=== PATIENT | female | born 1980 | race Caucasian/White ===

== ENCOUNTER 2021-11-29 12:17 | Outpatient (CLI) | payer OTHER, SELFPAY ==
--- NOTE | ~2021-11-29 | MR_ITS ---
EXAMINATION: MR lumbar spine wo con DATE: 11/29/2021 12:52 INDICATION: Low back pain. TECHNIQUE: Magnetic resonance imaging (MRI) of the lumbar spine was performed without intravenous con trast. Sequences included sagittal T2-weighted FSE, sagittal T2-weighted FS FSE, sagittal T1-weighted FSE, and axial T2-weighted FSE. COMPARISON: None FINDINGS: Bone alignment is normal. Vertebral body heights are normal. There is severely decreased di sc height at L5-S1 with endplate remodeling. The distal spinal cord signal intensity is normal. The c onus medullaris is at L1-L2. The following disc levels are specifically discussed: L1-L2: The disc does not extend beyond the endplate margin. There is mild bilateral facet joint osteo arthritis. There is no neural foraminal stenosis. There is no central canal stenosis. L2-L3: The disc does not extend beyond the endplate margin. There is mild bilateral facet joint osteo arthritis. There is no neural foraminal stenosis. There is no central canal stenosis. L3-L4: The disc does not extend beyond the endplate margin. There is moderate bilateral facet joint o steoarthritis. There is no neural foraminal stenosis. There is no central canal stenosis. L4-L5: The disc is mildly bulging. There is moderate bilateral facet joint osteoarthritis. There is m ild left neural foraminal stenosis. There is no central canal stenosis. L5-S1: The disc is bulging with superimposed central extrusion with mass effect on the bilateral S1 n erve roots in the lateral recesses. There is mild bilateral facet joint osteoarthritis. There is mild bilateral neural foraminal stenosis. There is mild central canal stenosis at the midline. There is m oderate stenosis of the lateral recesses. IMPRESSION: 1. Severe spondylosis at L5-S1 where an extrusion exerts mass effect on the bilateral S1 nerve roots. Reviewed, dictated and finalized at location A. IMPRESSION: 1. Severe spondylosis at L5-S1 where an extrusion exerts mass effect on the felisha ateral S1 nerve roots.
== END 2021-11-29 12:18 ==
LOC: MICIMG 12:20
PROVIDERS: PCP Chiropractor Rehabilitation; Visit Provider Chiropractor Rehabilitation
DX: M54.50 Low back pain, unspecified (principal); M47.817 Spondylosis without myelopathy or radiculopathy, lumbosacral region
CPT/HCPCS: 72148

== ENCOUNTER 2023-02-19 12:16 | Outpatient (CLI) | payer OTHER, SELFPAY ==
--- NOTE | ~2023-02-19 | MMUS_ITS ---
EXAMINATION: MM diagnostic aung BI w charline, US breast BI limited HISTORY: Palpable lump in the upper outer quadrant of the right breast TECHNIQUE: Craniocaudal, mediolateral, and mediolateral oblique 3-D tomosynthesis images of the april ts were performed and synthetic 2-D images were generated. CAD analysis was submitted and interpreted . High resolution limited bilateral breast ultrasound was performed. COMPARISON: None, baseline BREAST PARENCHYMAL COMPOSITION: The breasts are heterogeneously dense, which may obscure small masses . FINDINGS: MAMMOGRAPHIC FINDINGS: Right breast: No mammographic correlate is identified for the reported palpable abnormality in the up per outer quadrant of the right breast. There is a subtle asymmetry in the subareolar aspect of the b reast on the mediolateral view which somewhat disperses with spot compression. Left breast: There is asymmetry in the anterior/middle third of the outer breast 4 cm from the nipple on the craniocaudal view. An asymmetry is present 10 cm from the nipple in the middle/posterior thir d of the inner breast on the craniocaudal view. Both somewhat disperses with spot compression. ULTRASOUND: No sonographic correlate is identified for the reported palpable abnormality in the upper outer quadr ant of the right breast. In addition, no sonographic correlate is identified for the asymmetries in e ither breast. IMPRESSION: 1. No specific mammographic or sonographic correlate is identified for the reported palpable abnormal ity of concern in the right breast. Further evaluation at this time should be based on clinical asses sment. Continued follow-up physical examination is recommended. 2. Recommend routine screening mammography in one year. BI-RADS Category 1: Negative Reviewed, dictated and finalized at location A. D ENGINEER IMPRESSION: 1. No specific mammographic or sonographic correlate is identified for the repo rted palpable abnormality of concern in the right breast. Further evaluation at this time should be based on clinical assessment. Continued follow-up physical examination is recommended. 2. Recommend routine screening mammography in one year. BI-RADS Category 1: Negative
== END 2023-02-19 12:17 | disposition home or self-care (01) ==
LOC: ANHIMG 12:21
DX: N63.15 Unspecified lump in the right breast, overlapping quadrants (principal)
CPT/HCPCS: 76642; 77062; 77066; G0279

== ENCOUNTER 2024-05-05 13:41 | Outpatient (CLI) | payer OTHER, SELFPAY ==
--- OUTSIDE RECORDS SUMMARY | 2024-05-05 14:30 | XMS_ITS | Data Portability ---
Author Organization [facility], [address] [facility] ([place]) Address [address] [address] Care Team Providers Care Broadcast Field Supervisor Name Role Phone VIVIANA JON Primary Care Provider KEVIN WILLETT Reamer Hand Assessment No assessment recorded. Plan of Treatment Reminders Order Date Submit Date Provider Last Modified By Organization Details Last Modified Time Details Appointments None recorded. Lab general health panel 2024 025 [facility], [address] [place] [address], [id number], 5 14:20:48 lipid panel, serum 2024 025 [facility], [address] [place] [address], [id number], 5 14:20:50 hemoglobin A1c + average glucose, QN, blood 2024 025 [facility], [address] [place] [address], [id number], 5 16:21:57 Pap test, slide(s), cervical 2024 025 [facility], [address] [place] [address], [id number], 5 13:59:19 Referral None recorded. Procedures None recorded. Surgeries None recorded. Imaging MAMMO, screening, digital, bilateral 2024 025 [facility], [address], [place], [address], 13:59:19 Medication Orders Wellbutrin SR 150 mg tablet, 12 hr sustained-r elease 2024 025 [id number], [address], [place], [address], 13:59:19 Patient TargetsNo targets recorded. Patient InstructionsNo instructions recorded. Reason for Referral None Reported. Results Created Date Observation Date Name Description Value Unit Range Abnormal Flag Note LastModifiedBy Organization Detail LastModifiedTime 04/30/1904/30/2024 gener al [facility]alt [facility] panel ghp Not Available [facility] [address] [place] [address], [id number], 04/30/2024 14:28:02 04/30/19 25 04/30/2024 gener al healt h panel TSH3 1.572 uIU/m L .340-5 .600 Not Available [facility] [address] [place] [address], [id number], 04/30/2024 14:28:02 04/30/19 25 04/30/2024 gener al healt h panel WBC 5.5 K/uL 3.8-11 .2 Not Available [facility] [address] [place] [address], [id number], 04/30/2024 14:28:02 04/30/19 25 04/30/2024 gener al healt h panel RBC 4.62 M/uL 3.92-5 .10 Not Available [facility] [address] [place] [address], [address], 04/30/2024 14:28:02 04/30/19 25 04/30/2024 gener al healt h panel HGB 11.1 g/dL 11.8-1 5.3 low Not Available [facility] [address] [place] [address], [id number], 04/30/2024 14:28:02 04/30/19 25 04/30/2024 gener al healt h panel HCT 34.8 % 36.5-4 4.8 low Not Available [facility] [address] [place] [address], [id number], 04/30/2024 14:28:02 04/30/19 25 04/30/2024 gener al healt h panel MCV 75.3 fL 80.0-9 9.0 low Not Available [facility] [address] [place] [address], [id number], 04/30/2024 14:28:02 04/30/19 25 04/30/2024 gener al healt h panel MCH 24.0 pg 25.5-3 3.6 low Not Available [facility] [address] [place] [address], [id number], 04/30/2024 14:28:02 04/30/19 25 04/30/2024 gener al healt h panel MCHC 31.9 g/dL 32.0-3 6.0 low Not Available [facility] [address] [place] [address], [address], 04/30/2024 14:28:02 04/30/19 25 04/30/2024 gener al healt h panel RDW-SD 39.7 fL 35.1 - 46.3 Not Available [facility] [address] [place] [address], [address], 04/30/2024 14:28:02 04/30/19 25 04/30/2024 gener al healt h panel plt 285 K/uL 130-40 0 Not Available [facility] [address] [place] [address], [address], 04/30/2024 14:28:02 04/30/19 25 04/30/2024 gener al healt h panel MPV 10.9 fL 9.3-12 .8 Not Available [facility] [address] [place] [address], [address], 04/30/2024 14:28:02 04/30/19 25 04/30/2024 gener al healt h panel jorge l% 66.2 % not estab Not Available [facility] [address] [place] [address], [id number], 04/30/2024 14:28:02 04/30/19 25 04/30/2024 gener al healt h panel lym% 23.1 % not estab Not Available [facility] [address] [place] [address], [id number], 04/30/2024 14:28:02 04/30/19 25 04/30/2024 gener al healt h panel mono% 7.6 % not estab Not Available [facility] [address] [place] [address], [address], 04/30/2024 14:28:02 04/30/19 25 04/30/2024 gener al healt h panel eos% 1.8 % not estab Not Available [facility] [address] [place] [address], 59[address], 04/30/2024 14:28:02 04/30/19 25 04/30/2024 gener al healt h panel baso% 0.9 % not estab Not Available [facility] [address] [place] [address], 017[address], 04/30/2024 14:28:02 04/30/19 25 04/30/2024 gener al healt h panel abs jorge l 3.7 K/uL 1.8-7. 5 Not Available [facility] [address] [place] [address], [address], 04/30/2024 14:28:02 04/30/19 25 04/30/2024 gener al healt h panel abs lym 1.3 K/uL 1.1-3. 3 Not Available [facility] [address] [place] [address], [id number], 04/30/2024 14:28:02 04/30/19 25 04/30/2024 gener al healt h panel abs mono 0.4 K/uL 0.1-1. 0 Not Available [facility] [address] [place] [address], [id number], 04/30/2024 14:28:02 04/30/19 25 04/30/2024 gener al healt h panel abs eos 0.1 K/uL 0.0-0. 7 Not Available [facility] [address] [place] [address], [address], 04/30/2024 14:28:02 04/30/19 25 04/30/2024 gener al healt h panel abs baso 0.1 K/uL 0.0-0. 2 Not Available [facility] [address] [place] [address], [id number], 04/30/2024 14:28:02 04/30/19 25 04/30/2024 gener al healt h panel imm. gran % 0.4 % 0-5 Not Available [facility] [address] [place] [address], [address], 04/30/2024 14:28:02 04/30/19 25 04/30/2024 gener al healt h panel NRBC % 0.0 % 0.0-0. 2 Not Available [facility] [address] [place] [address], [id number], 04/30/2024 14:28:02 04/30/19 25 04/30/2024 gener al healt h panel sodium 139 mmol/ L 136-14 6 Not Available [facility] [address] [place] [address], 47[address], 04/30/2024 14:28:02 04/30/19 25 04/30/2024 gener al healt h panel potassium 3.9 mmol/ L 3.5-5. 1 Not Available [facility] [address] [place] [address], 0[address], 04/30/2024 14:28:02 04/30/19 25 04/30/2024 gener al healt h panel chloride 107 mmol/ L 98-110 Not Available [facility] [address] [place] [address], 6[address], 04/30/2024 14:28:02 04/30/19 25 04/30/2024 gener al healt h panel CO2 26 mEq/L 20-32 Not Available [facility] [address] [place] [address], [id number], 04/30/2024 14:28:02 04/30/19 25 04/30/2024 gener al healt h panel anion gap 10 mmol/ L 10-22 Not Available [facility] [address] [place] [address], 59444, 04/30/2024 14:28:02 04/30/19 25 04/30/2024 gener al healt h panel glucose 96 mg/dL 70-100 Not Available [facility] [address] [place] [address], 550[address], 04/30/2024 14:28:02 04/30/19 25 04/30/2024 gener al healt h panel calcium 9.5 mg/dL 8.4-10 .4 Not Available [facility] [address] [place] [address], [address]26, 04/30/2024 14:28:02 04/30/19 25 04/30/2024 gener al healt h panel total protein 6.8 g/dL 6.4-8. 3 Not Available [facility] [address] [place] [address], 984[address], 04/30/2024 14:28:02 04/30/19 25 04/30/2024 gener al healt h panel albumin 4.5 g/dL 3.5-5. 3 Not Available [facility] [address] [place] [address], 66401, 04/30/2024 14:28:02 04/30/19 25 04/30/2024 gener al healt h panel ALP 103 U/L 44 - 127 Not Available [facility] [address] [place] [address], 05482, 04/30/2024 14:28:02 04/30/19 25 04/30/2024 gener al healt h panel AST (SGOT) 15 U/L 10-40 Not Available [facility] [address] [place] [address], 64483, 04/30/2024 14:28:02 04/30/19 25 04/30/2024 gener al healt h panel total bilirubin 0.3 mg/dL 0.2-1. 0 Not Available [facility] [address] [place] [address], 24698, 04/30/2024 14:28:02 04/30/19 25 04/30/2024 gener al healt h panel ALT (SGPT) 14 U/L 8-35 Not Available [facility] [address] [place] [address], 40454, 04/30/2024 14:28:02 04/30/19 25 04/30/2024 gener al healt h panel BUN 13 mg/dL 7-21 Not Available [facility] [address] [place] [address], 75790, 04/30/2024 14:28:02 04/30/19 25 04/30/2024 gener al healt h panel creatinine 0.6 mg/dL 0.7-1. 3 low Not Available [facility] [address] [place] [address], 76497, 04/30/2024 14:28:02 04/30/19 25 04/30/2024 gener al healt h panel CKD-epi GFR 115 eGFR was calcu lated using the 2020 CKD-E PI equat ion. (Wet End Helper omero Kidne y Disea se has an eGFR less than 60 mL/mi n/1.7 3mm for a perio d of three month s or more. ) This calcu latio n has not been valid ated for patie nt ages <18 or >90 years old. Not Available [facility] [address] [place] [address], 26386, 04/30/2024 14:28:02 04/30/19 25 04/30/2024 lipid panel , serum lipid profile Not Available [facility] [address] [place] [address], 88275, 04/30/2024 14:20:50 04/30/19 25 04/30/2024 lipid panel , serum cholesterol 138 mg/dL <25-20 0 Not Available [facility] [address] [place] [address], 40794, 04/30/2024 14:20:50 04/30/19 25 04/30/2024 lipid panel , serum triglyceride 108 mg/dL 15-200 Not Available [facility] [address] [place] [address], 43832, 04/30/2024 14:20:50 04/30/19 25 04/30/2024 lipid panel , serum HDL 55 mg/dL >40 Not Available [facility] [address] [place] [address], 47218, 04/30/2024 14:20:50 04/30/19 25 04/30/2024 lipid panel , serum LDL, calculated 61 mg/dL 5-100 Not Available [facility] [address] [place] [address], 91533, 04/30/2024 14:20:50 04/30/19 25 04/30/2024 lipid panel , serum VLDL 22 mg/dL 1-40 Not Available [facility] [address] [place] [address], 41879, 04/30/2024 14:20:50 04/30/19 25 04/30/2024 lipid panel , serum chol/HDL 2.5 ratio 0.0-4. 4 Not Available [facility] [address] [place] [address], 12093, 04/30/2024 14:20:50 04/30/19 25 04/30/2024 hemog lobin A1c + avera ge gluco se, QN, blood hemoglobin A1C Not Available [facility] [address] [place] [address], 26745, 04/30/2024 16:21:57 04/30/19 25 04/30/2024 hemog lobin A1c + avera ge gluco se, QN, blood HGB A1C 5.8 %_A1C 4.3 - 5.6 high Not Available [facility] [address] [place] [address], 07735, 04/30/2024 16:21:57 04/30/19 25 04/30/2024 hemog lobin A1c + avera ge gluco se, QN, blood estimated average glucose 120 mg/dL Not Available [facility] [address] [place] [address], 15229, 04/30/2024 16:21:57 Result Notes None recorded. Problems Name Problem SNOMED Code Status Onset Date Resolution Date Notes Provider Name and Address Organization Details Recorded Time Mixed anxiety and depressive disorder 018747821 [facility]12 Mixed anxiety and depressive disorder 738610587 Active 2024 Kevin Willett MD [address] [place] [address], [phone] , [facility] 5 11:21:47 Anemia 687076492 [facility] 2024 [facility] 14:51:17 High hemoglobin A1c level 970261286 Active 2024 Jennifer Bradley [facility] 5 17:26:12 Lump in upper outer quadrant of left breast 3450918880934 03 Active 2024 Leta Bradley [facility] 5 15:16:38 Problem Notes None recorded. Procedures Surgical History Date Name Laterality Status Provider Name and Address Organization Details Recorded Time delivery completed Not Available Health Note 04/30/2024 06:27:14 Colonoscopy with biopsy completed Not Available Health Note 04/30/2024 06:27:14 Imaging Results None recorded. Procedure Notes None recorded. Medical Equipment None Reported. Allergies No known drug allergies Medications Name Sig Start Date Stop Date Status Note LastModified by Organization Details LastModified Time Wellbutrin SR 150 mg tablet, 12 hr sustained-rele ase Take one tablet daily as directed . 025 active Not Available Not Available Not Avai lable escitalopram 10 mg tablet TAKE 1 TABLET BY MOUTH ONCE DAILY active Not Available Not Available No t Available Vitals Date Recorded Body height Provider Name an d Address Organization Details Last Updated DateTime 04/30/2024 161.29 cm [facility] 04/30/2024 10:37:35 Date Recorded Body mass index (BMI) Body weight Provider Name and Address Organization Details Last Updated DateTime 04/30/2024 31 kg/m2 67082.44 g [facility] 04/30/2024 10:43:09 Date Recorded Systolic blood pressure Diastolic blood pressure Provider Name and Address Organization Details Last Updated DateTime 04/30/2024 118 mm[Hg] 84 mm[Hg] [facility] 04/30/2024 10:43:32 Social History Question Answer Notes LastModified by Organizat ion Details LastModified Time Tobacco Smoking Status Never Smoker Not Available Health Note 04/30/2024 06:27:15 Do You Have An Advance Directive? No [email or web address] Information not available 04/30/2024 What Is Your Level Of Alcohol Consumption? None [email or web address] Information not available 04/30/2024 What Is Your Level Of Caffeine Consumption? Heavy [email or web address] Information not available 04/30/2024 Are You Currently Employed? Yes [email or web address] Information not available 04/30/2024 What Is Your Occupation? [employer] [email or web address] Information not available 04/30/2024 How Many Times Per Week Do You Exercise? Less Than 1 Time Per Week [email or web address] Information not available 04/30/2024 What Was The Date Of Your Most Recent Tobacco Screening? 04/30/2024 [email or web address] Information not available 04/30/2024 What Is Your Relationship Status? [email or web address] Information not available 04/30/2024 Are You Sexually Active? Yes [email or web address] Information not available 04/30/2024 Do You Use Any Illicit Or Recreational Drugs? No [email or web address] Information not available 04/30/2024 Sex: Unknown Functional Status Question Answer Note LastModified by Organizat ion Details LastModified Time What is your exercise level? Occasional [email or web address] Information not available 04/30/2024 Mental Status None recorded. Family History Relationship Description Onset Age of this Age Resolved Age Notes LastModified by Organization Details LastModified Time Mother Attention deficit hyperactivit y disorder [email or web address] Not available 04/30 06:27:14 Sister Attention deficit hyperactivit y disorder [email or web address] Not available 04/30 06:27:14 Brother Attention deficit hyperactivit y disorder [email or web address] Not available 04/30 06:27:14 Daughter Attention deficit hyperactivit y disorder [email or web address] Not available 04/30 06:27:14 Maternal Grandfather Hypertensive disorder [email or web address] Not available 2024 06:27:14 Maternal Grandfather Hypercholest erolemia [email or web address] Not available 2024 06:27:14 Maternal Grandmother Cerebrovascu lar accident [email or web address] Not available 06:27:14 Medical History Condition Response High Blood Pressure N COPD N Depression Y Anxiety Disorder Y Arthritis N Cancer N Stroke N Fibromyalgia N Kidney Disease N Attention-deficit Hyperactivity Disorder N Thyroid Problems N Anemia N Diabetes N Bleeding Disorder N Hyperlipidemia N Asthma N Seizures N Heart Disease N Osteoporosis N Gynecological History Statement/Question Response Menses Monthly Y Abnormal Pap N Current Control Method Tubal Ligat ion Date of LMP 04/18/2024 Sexually Active? Y Obstetrics History GPAL:G 4 P 0 0 0 3 Type Value Living 3 Total 4 Past Encounters Encounter ID Performer Location Encounter Start Date Encounter Closed Date Diagnosis/Indication Diagnosis SNOMED-CT Code Diagnosis ICD10 Code Diagnosis Note [id number] Kevin Willett MD [address] [facility] [address] [place] [address] 04/30/2024 10:21:53 04/30/2024 14:16:46 Gynecologic examination 97816755 Z01.419 --Annual SURFACE SUPPLY BREATHING APPARATUS exam performed. --Family and personal medical history and risk factors reviewed with patient.-- ACOG Pap guidelines reviewed.- - Breast care: Clinical breast exam performed. Discussion of self breast awareness. Annual screening recommenda tions reviewed. Order given to get screening mammogram. -- Diet and exercise were encouraged to obtain and maintain healthy weight.-- Importance of colon cancer screening counseled. -- Contracept ion: Sterilizat ion-- Partners and prevention sheet provided.- - The patient was encouraged to continue care with her primary care provider for the management of general medical comorbidit ies and other health maintenanc e screening. -- Breast and ovarian cancer syndrome screening questionna naomi: up to date--Windy ent desires lab screening lipid panel, A1c, and general health panel Screening mammography 24 916501 Z12.31 General ex amination of patient 013953561 Z00.00 Mixed anxi ety and depressive disorder 782289257 F41.9 F32.A Patient has a lot of social things going on right now and has had a return of her anxiety and depression . She denies any SI/HI. She is tearful in the office. She was on citalopram before but had a lot of weight gain and problems with decreased libido. Will try Wellbutrin SR 150mg daily to see if she has less side effects with this. Will follow-up in 3 months. Health Concerns Section Related Observation LastModified by Organization Detai ls LastModified Time None Recorded Concern Status LastModified by Organization Details LastModified Time None Recorded Advance Directives Directive N: Payers Encounter Date Sequence Insurance Name Policy Number Policy Corley Covered Member ID Corley Member ID Guarantor Name 04/30/2024 1 [facility] [facility] [employer] Matilda Rangel [id number] RICH Rangel Notes Date Note Type Note Provider Name and Address Organization Details Recorded Time 04/30/2024 text/html Patient here tod ay for routine gynecological exam. Patient is a . Patient has no complaints today. PHQ positive today with a score of 13. Patient is never a smoker. The patient denies pelvic pain, abnormal vaginal discharge, breast problems, urinary symptoms, vasomotor symptoms, mood changes and bowel problems.?Windy ent does self breast exams, has adequate calcium intake and exercises occasionally/freque ntly. Contraception: Tubal ligation October 2018LMP: 04/18/2024The patient's periods occur regularly every 28 days with moderate/light/heav y flow and lasts 5-7 days.The patient is currently sexually active. The patient has had no changes to family/surgical history since last visit. Last Mammogram: 02/19/2023Last Colonoscopy: NoneLast Bone Density: NoneLast Pap Smear:06/03/2021 Performed By: HAILEY Result: Neg/NegAbnormal Pap History: NonePatient is due for a pap smear today.History of GDM?: NoHistroy of GHTN?: NoHepatitis C: 12/05/2019 NRHCRA: Updated today: negative.TC Score:Gardasil Vaccinated?: None Kevin Willett MD [address] [place] [address], [phone], [facility] 04/30/2024 11:22:55 OBGyn Episode No OBEpisode recorded.
== END 2024-05-05 13:42 | disposition home or self-care (01) ==
LOC: CHSIMG 13:43
DX: Z12.31 Encounter for screening mammogram for malignant neoplasm of breast (principal)
CPT/HCPCS: 99199

== ENCOUNTER 2024-05-08 08:48 | Outpatient (CLI) | payer OTHER, SELFPAY ==
--- NOTE | ~2024-05-08 | MMUS_ITS ---
EXAMINATION: MM diagnostic aung BI w charline, US breast LT limited HISTORY: Palpable left breast abnormality TECHNIQUE: Additional 3-D tomosynthesis images of the breasts were performed and synthetic 2-D images were generated. CAD analysis was submitted and interpreted. High resolution Limited left breast ultr asound was performed. COMPARISON: 02/19/2023 BREAST PARENCHYMAL COMPOSITION: Dense: The breasts are extremely dense, which lowers the sensitivity of mammography. FINDINGS: MAMMOGRAPHIC FINDINGS: The breasts are stable. No new masses, calcifications or architectural distortion in either breast to suggest malignancy. ULTRASOUND: Limited left breast ultrasound: Normal heterogeneous echotexture without focal mass. IMPRESSION: 1. No evidence for malignancy in either breast. 2. Routine yearly screening mammogram and regular clinical breast examination are recommended. BI-RADS Category 1: Negative Reviewed, dictated and finalized at location A. [employer] IMPRESSION: 1. No evidence for malignancy in either breast. 2. Routine yearly screening mammogram and regular clinical breast examination a re recommended. BI-RADS Category 1: Negative
--- OUTSIDE RECORDS SUMMARY | 2024-05-08 09:15 | XMS_ITS | Data Portability ---
Author Organization [facility], [address] [facility] ([place]) Address [address] [address] Care Team Providers Care Clinical Manager Home Care Name Role Phone VIVIANA JON Primary Care Provider KEVIN WILLETT Excellence Coach Assessment No assessment recorded. Plan of Treatment Reminders Order Date Submit Date Provider Last Modified By Organization Details Last Modified Time Details Appointments None recorded. Lab general health panel 2024 025 [facility], [address] [place] [address], [id number], 5 14:20:48 lipid panel, serum 2024 025 [facility], [address] [place] [address], [id number], 5 14:20:50 hemoglobin A1c + average glucose, QN, blood 2024 025 [facility], [address] [place] [address], [address], 5 16:21:57 Pap test, slide(s), cervical 2024 025 [facility], [address] [place] [address], 15168, 5 13:59:19 Referral None recorded. Procedures None recorded. Surgeries None recorded. Imaging MAMMO, screening, digital, bilateral [address] [facility], [address], [place], [address], 13:59:19 Medication Orders Wellbutrin SR 150 mg tablet, 12 hr sustained-r elease 2024 025 [id number], [address], [place], [address], 13:59:19 Patient TargetsNo targets recorded. Patient InstructionsNo instructions recorded. Reason for Referral None Reported. Results Created Date Observation Date Name Description Value Unit Range Abnormal Flag Note LastModifiedBy Organization Detail LastModifiedTime 04/30/1904/30/2024 gener al healt h panel ghp Not Available [facility] [address] [place] [address], [id number], 04/30/2024 14:28:02 04/30/19 25 04/30/2024 gener al healt h panel TSH3 1.572 uIU/m L .340-5 .600 Not Available [facility] [address] [place] [address], [id number], 04/30/2024 14:28:02 04/30/19 25 04/30/2024 gener al healt h panel WBC 5.5 K/uL 3.8-11 .2 Not Available [facility] [address] [place] [address], 81645, 04/30/2024 14:28:02 04/30/19 25 04/30/2024 gener al healt h panel RBC 4.62 M/uL 3.92-5 .10 Not Available [facility] [address] [place] [address], 42502, 04/30/2024 14:28:02 04/30/19 25 04/30/2024 gener al healt h panel HGB 11.1 g/dL 11.8-1 5.3 low Not Available [facility] [address] [place] [address], [id number], 04/30/2024 14:28:02 04/30/19 25 04/30/2024 gener al healt h panel HCT 34.8 % 36.5-4 4.8 low Not Available [facility] [address] [place] [address], 34431, 04/30/2024 14:28:02 04/30/19 25 04/30/2024 gener al healt h panel MCV 75.3 fL 80.0-9 9.0 low Not Available [facility] [address] [place] [address], 32093, 04/30/2024 14:28:02 04/30/19 25 04/30/2024 gener al healt h panel MCH 24.0 pg 25.5-3 3.6 low Not Available [facility] [address] [place] [address], 57534, 04/30/2024 14:28:02 04/30/19 25 04/30/2024 gener al healt h panel MCHC 31.9 g/dL 32.0-3 6.0 low Not Available [facility] [address] [place] [address], 00368, 04/30/2024 14:28:02 04/30/19 25 04/30/2024 gener al healt h panel RDW-SD 39.7 fL 35.1 - 46.3 Not Available [facility] [address] [place] [address], 11694, 04/30/2024 14:28:02 04/30/19 25 04/30/2024 gener al healt h panel plt 285 K/uL 130-40 0 Not Available [facility] [address] [place] [address], 43794, 04/30/2024 14:28:02 04/30/19 25 04/30/2024 gener al healt h panel MPV 10.9 fL 9.3-12 .8 Not Available [facility] [address] [place] [address], 76266, 04/30/2024 14:28:02 04/30/19 25 04/30/2024 gener al healt h panel jorge l% 66.2 % not estab Not Available [facility] [address] [place] [address], [id number], 04/30/2024 14:28:02 04/30/19 25 04/30/2024 gener al healt h panel lym% 23.1 % not estab Not Available [facility] [address] [place] [address], 41783, 04/30/2024 14:28:02 04/30/19 25 04/30/2024 gener al healt h panel mono% 7.6 % not estab Not Available [facility] [address] [place] [address], 66555, 04/30/2024 14:28:02 04/30/19 25 04/30/2024 gener al healt h panel eos% 1.8 % not estab Not Available [facility] [address] [place] [address], 77900, 04/30/2024 14:28:02 04/30/19 25 04/30/2024 gener al healt h panel baso% 0.9 % not estab Not Available [facility] [address] [place] [address], 68632, 04/30/2024 14:28:02 04/30/19 25 04/30/2024 gener al healt h panel abs jorge l 3.7 K/uL 1.8-7. 5 Not Available [facility] [address] [place] [address], 24324, 04/30/2024 14:28:02 04/30/19 25 04/30/2024 gener al healt h panel abs lym 1.3 K/uL 1.1-3. 3 Not Available [facility] [address] [place] [address], 57551, 04/30/2024 14:28:02 04/30/19 25 04/30/2024 gener al healt h panel abs mono 0.4 K/uL 0.1-1. 0 Not Available [facility] [address] [place] [address], 32095, 04/30/2024 14:28:02 04/30/19 25 04/30/2024 gener al healt h panel abs eos 0.1 K/uL 0.0-0. 7 Not Available [facility] [address] [place] [address], 63023, 04/30/2024 14:28:02 04/30/19 25 04/30/2024 gener al healt h panel abs baso 0.1 K/uL 0.0-0. 2 Not Available [facility] [address] [place] [address], 94632, 04/30/2024 14:28:02 04/30/19 25 04/30/2024 gener al healt h panel imm. gran % 0.4 % 0-5 Not Available [facility] [address] [place] [address], 71485, 04/30/2024 14:28:02 04/30/19 25 04/30/2024 gener al healt h panel NRBC % 0.0 % 0.0-0. 2 Not Available [facility] [address] [place] [address], [id number], 04/30/2024 14:28:02 04/30/19 25 04/30/2024 gener al healt h panel sodium 139 mmol/ L 136-14 6 Not Available [facility] [address] [place] [address], 38642, 04/30/2024 14:28:02 04/30/19 25 04/30/2024 gener al healt h panel potassium 3.9 mmol/ L 3.5-5. 1 Not Available [facility] [address] [place] [address], 77259, 04/30/2024 14:28:02 04/30/19 25 04/30/2024 gener al healt h panel chloride 107 mmol/ L 98-110 Not Available [facility] [address] [place] [address], 28339, 04/30/2024 14:28:02 04/30/19 25 04/30/2024 gener al healt h panel CO2 26 mEq/L 20-32 Not Available [facility] [address] [place] [address], 94396, 04/30/2024 14:28:02 04/30/19 25 04/30/2024 gener al healt h panel anion gap 10 mmol/ L 10-22 Not Available [facility] [address] [place] [address], 86687, 04/30/2024 14:28:02 04/30/19 25 04/30/2024 gener al healt h panel glucose 96 mg/dL 70-100 Not Available [facility] [address] [place] [address], 42023, 04/30/2024 14:28:02 04/30/19 25 04/30/2024 gener al healt h panel calcium 9.5 mg/dL 8.4-10 .4 Not Available [facility] [address] [place] [address], 14250, 04/30/2024 14:28:02 04/30/19 25 04/30/2024 gener al healt h panel total protein 6.8 g/dL 6.4-8. 3 Not Available [facility] [address] [place] [address], 00408, 04/30/2024 14:28:02 04/30/19 25 04/30/2024 gener al healt h panel albumin 4.5 g/dL 3.5-5. 3 Not Available [facility] [address] [place] [address], 47809, 04/30/2024 14:28:02 04/30/19 25 04/30/2024 gener al healt h panel ALP 103 U/L 44 - 127 Not Available [facility] [address] [place] [address], 34239, 04/30/2024 14:28:02 04/30/19 25 04/30/2024 gener al healt h panel AST (SGOT) 15 U/L 10-40 Not Available [facility] [address] [place] [address], 16562, 04/30/2024 14:28:02 04/30/19 25 04/30/2024 gener al healt h panel total bilirubin 0.3 mg/dL 0.2-1. 0 Not Available [facility] [address] [place] [address], 01907, 04/30/2024 14:28:02 04/30/19 25 04/30/2024 gener al healt h panel ALT (SGPT) 14 U/L 8-35 Not Available [facility] [address] [place] [address], 65697, 04/30/2024 14:28:02 04/30/19 25 04/30/2024 gener al healt h panel BUN 13 mg/dL 7-21 Not Available [facility] [address] [place] [address], 96609, 04/30/2024 14:28:02 04/30/19 25 04/30/2024 gener al healt h panel creatinine 0.6 mg/dL 0.7-1. 3 low Not Available [facility] [address] [place] [address], 24822, 04/30/2024 14:28:02 04/30/19 25 04/30/2024 gener al healt h panel CKD-epi GFR 115 eGFR was calcu lated using the 2020 CKD-E PI equat ion. (Pastry Mixer omero Kidne y Disea se has an eGFR less than 60 mL/mi n/1.7 3mm for a perio d of three month s or more. ) This calcu latio n has not been valid ated for patie nt ages <18 or >90 years old. Not Available [facility] [address] [place] [address], 38969, 04/30/2024 14:28:02 04/30/19 25 04/30/2024 lipid panel , serum lipid profile Not Available [facility] [address] [place] [address], 19951, 04/30/2024 14:20:50 04/30/19 25 04/30/2024 lipid panel , serum cholesterol 138 mg/dL <25-20 0 Not Available [facility] [address] [place] [address], 30866, 04/30/2024 14:20:50 04/30/19 25 04/30/2024 lipid panel , serum triglyceride 108 mg/dL 15-200 Not Available [facility] [address] [place] [address], 74500, 04/30/2024 14:20:50 04/30/19 25 04/30/2024 lipid panel , serum HDL 55 mg/dL >40 Not Available [facility] [address] [place] [address], 09015, 04/30/2024 14:20:50 04/30/19 25 04/30/2024 lipid panel , serum LDL, calculated 61 mg/dL 5-100 Not Available [facility] [address] [place] [address], 98637, 04/30/2024 14:20:50 04/30/19 25 04/30/2024 lipid panel , serum VLDL 22 mg/dL 1-40 Not Available [facility] [address] [place] [address], 58703, 04/30/2024 14:20:50 04/30/19 25 04/30/2024 lipid panel , serum chol/HDL 2.5 ratio 0.0-4. 4 Not Available [facility] [address] [place] [address], 48469, 04/30/2024 14:20:50 04/30/19 25 04/30/2024 hemog lobin A1c + avera ge gluco se, QN, blood hemoglobin A1C Not Available [facility] [address] [place] [address], 94644, 04/30/2024 16:21:57 04/30/19 25 04/30/2024 hemog lobin A1c + avera ge gluco se, QN, blood HGB A1C 5.8 %_A1C 4.3 - 5.6 high Not Available [facility] [address] [place] [address], 50123, 04/30/2024 16:21:57 04/30/19 25 04/30/2024 hemog lobin A1c + avera ge gluco se, QN, blood estimated average glucose 120 mg/dL Not Available [facility] [address] [place] [address], 49955, 04/30/2024 16:21:57 Result Notes None recorded. Problems Name Problem SNOMED Code Status Onset Date Resolution Date Notes Provider Name and Address Organization Details Recorded Time Mixed anxiety and depressive disorder 547948165 [facility] 5 11:18:12 Mixed anxiety and depressive disorder 117639028 Active 2024 Kevin Willett MD [address] [place] [address], [id number] , [facility] 5 11:21:47 Anemia 598075784 Active 2024 [facility] 5 14:51:17 High hemoglobin A1c level 240506661 Active 2024 Jennifer Bradley [facility] 5 17:26:12 Lump in upper outer quadrant of left breast 3219551524324 03 Active 2024 Leta Bradley [facility] 5 15:16:38 Problem Notes None recorded. 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 Less Than 1 Time Per Week [email or web address] Information not available 04/30/2024 What Was The Date Of Your Most Recent Tobacco Screening? 04/30/2024 [email or web address] Information not available 04/30/2024 What Is Your Relationship Status? [email or web address] Information not available 04/30/2024 Are You Sexually Active? Yes [email or web address] Information not available 04/30/2024 Do You Use [...] Not available 06:27:14 Medical History Condition Response Attention-deficit Hyperactivity Disorder N High Blood Pressure N Thyroid Problems N COPD N Depression Y Anemia N Diabetes N Anxiety Disorder Y Bleeding Disorder N Arthritis N Hyperlipidemia N Cancer N Stroke N Asthma N Seizures N Heart Disease N Fibromyalgia N Osteoporosis N Kidney Disease N Gynecological History Statement/Question Response Menses Monthly Y Abnormal Pap N Current Control Method Tubal Ligat ion Date of LMP 04/18/2024 Sexually Active? Y Obstetrics History GPAL:G 4 P 0 0 0 3 Type Value Living 3 Total 4 Past Encounters Encounter ID Performer Location Encounter Start Date Encounter Closed Date Diagnosis/Indication Diagnosis SNOMED-CT Code Diagnosis ICD10 Code Diagnosis Note [id number] Kevin Willett MD [address] [facility]) [address] [place] [address] 04/30/2024 10:21:53 04/30/2024 14:16:46 Gynecologic examination 11827573 Z01.419 --Annual [employer] exam performed. --Family and personal medical history [...] and general health panel Screening mammography 24 513952 Z12.31 General ex amination of patient 352964502 Z00.00 Mixed anxi ety and depressive disorder 744749600 F41.9 F32.A Patient has a lot of [...] ID Guarantor Name 04/30/2024 1 [facility] [employer] Matilda Rangel [id number] RICH Rangel Notes Date Note Type Note [...] Vaccinated?: None Kevin Willett MD [address] [place] [address], [phone], [facility] 04/30/2024 11:22:55 OBGyn Episode No OBEpisode recorded.
== END 2024-05-08 08:49 | disposition home or self-care (01) ==
LOC: CHSIMG 08:52
DX: N63.21 Unspecified lump in the left breast, upper outer quadrant (principal)
CPT/HCPCS: 76642; 77062; 77066; G0279